=== PATIENT | female | born 1990 | race Caucasian/White ===

== ENCOUNTER 2016-12-26 07:33 | Emergency (ER) | payer SELFPAY ==
[2016-12-26 07:37] VITALS: O2SAT 99
[2016-12-26] MEDS ORDERED: HALOPERIDOL LACT 5 MG/ML INJ IVP ONE (08:08)
[2016-12-26] MEDS ORDERED: NS 1,000 ML IV ONE (08:09)
--- NOTE | 2016-12-26 08:12 | EDPHY ---
HPI/HX/ROS/PE/MDM Narrative: CHIEF COMPLAINT: Vomiting and abdominal pain HPI: The patient is a 26 y/o female complaining of lower abdominal pain and vomiting for the past 3-4 hours. She is currently begging to take a hot shower, as she believes this will help with her symptoms. The patient admits to using marijuana everyday, but denies drinking alcohol. Denies recent illness, history of surgery, urinary complaints, bowel complaints or other pertinent symptoms. REVIEW OF SYSTEMS: Aside from elements discussed in the HPI, a comprehensive 10-point review of systems was reviewed and is negative. PMH: Denies SOCIAL HISTORY: Friend at bedside, frequent marijuana user, denies alcohol PHYSICAL EXAM: General:Patient is alert, in no acute distress. ENT:Eyes are normal to inspection. ENT inspection normal. Neck: Normal inspection. Full range of motion. Respiratory:No respiratory distress. Breath sounds normal bilaterally. Cardiovascular: Regular rate and rhythm. Strong peripheral pulses. Normal cap refill. Abdomen: Diffuse abdominal tenderness to palpation. There are no peritoneal signs. There are normal bowel sounds. Back: Normal to inspection. No tenderness to palpation. Skin: Normal color. No rash. Warm and dry. Extremities: Normal appearance. Full range of motion. Neuro: Oriented x3. Normal motor function. Normal sensory function. Portions of this note were transcribed by an ED scribe. I personally performed the history, physical exam, and medical decision making; and confirm the accuracy of the information in the transcribed note. ED Course: The patient is a 26 y/o female, who is a frequent marijuana user, presenting with diffuse abdominal tenderness and emesis. She is currently begging for a hot shower, as she believes this will improve her symptoms. 0957: Spoke with Dr. Alarcon, radiologist, he reports the abdominopelvic CT is normal. 1042: The nurse reports that the patient pulled out her IV and left the emergency department. MDM: This patient presents with vomiting and abdominal pain with an essentially negative workup. Given her history of daily marijuana use and repeated requests for a hot shower, I suspect CHS. Unfortunately, the patient pulled out her own IV and walked out of the ED before visit was complete. - Data Points Imaging Results: Imaging Impressions Abdomen CT 12/26/16 09:14 Impression: 1. Probable mild wall thickening in the distal stomach, suboptimally assessed due to underdistention, which can be seen with gastritis. 2. Enlarged liver. 3. Additional findings as above.. Findings discussed with Carlos A Jacobs M.D. on December 26, 2016 at 9:56 a.m. Imaging: Discussed imaging studies w/ call center manager Radiologist, I viewed and interpreted images myself Laboratory Results: Laboratory Results 12/26/16 08:25 12/26/16 08:25 12/26/16 12/26/16 12/26/16 08:25 08:25 08:25 WBC 14.41 10^3/uL H 10^3/uL (3.80-9.50) RBC 5.03 10^6/uL 10^6/uL (4.18-5.33) Hgb 14.2 g/dL g/dL (12.6-16.3) Hct 42.3 % % (38.0-47.0) MCV 84.1 fL fL (81.5-99.8) MCH 28.2 pg pg (27.9-34.1) MCHC 33.6 g/dL g/dL (32.4-36.7) RDW 13.0 % % (11.5-15.2) Plt Count 295 10^3/uL 10^3/uL (150-400) MPV 11.9 fL H fL (8.7-11.7) Neut % (Auto) 74.7 % H % (39.3-74.2) Lymph % (Auto) 20.1 % % (15.0-45.0) [place] % (Auto) 4.0 % L % (4.5-13.0) Eos % (Auto) 0.1 % L % (0.6-7.6) Baso % (Auto) 0.3 % % (0.3-1.7) Nucleat RBC Rel Count 0.0 % % (0.0-0.2) Absolute Neuts (auto) 10.78 10^3/uL H 10^3/uL (1.70-6.50) Absolute Lymphs (auto) 2.90 10^3/uL 10^3/uL (1.00-3.00) Absolute Monos (auto) 0.57 10^3/uL 10^3/uL (0.30-0.80) Absolute Eos (auto) 0.01 10^3/uL L 10^3/uL (0.03-0.40) Absolute Basos (auto) 0.04 10^3/uL 10^3/uL (0.02-0.10) Absolute Nucleated RBC 0.00 10^3/uL 10^3/uL (0-0.01) Immature Gran % 0.8 % % (0.0-1.1) Immature Gran # 0.11 10^3/uL H 10^3/uL (0.00-0.10) Sodium 143 mEq/L mEq/L (134-144) Potassium 3.6 mEq/L mEq/L (3.5-5.2) Chloride 104 mEq/L mEq/L (97-110) Carbon Dioxide 22 mEq/l mEq/l (22-31) Anion Gap 17 mEq/L H mEq/L (8-16) BUN 9 mg/dL mg/dL (7-23) Creatinine 0.6 mg/dL mg/dL (0.6-1.0) Estimated GFR > 60 Glucose 179 mg/dL H mg/dL (70-100) Calcium 9.6 mg/dL mg/dL (8.5-10.4) Lipase 78 IU/L IU/L (23-300) Beta HCG, Qual NEGATIVE Medications Given: Discontinued Medications Haloperidol Lactate (Haldol Injection) 2.5 mg IVP EDNOW ONE Stop: 12/26/16 08:09 Last Admin: 12/26/16 08:36 Dose: 2.5 mg Sodium Chloride (Ns) 1,000 mls @ 0 mls/hr IV EDNOW ONE; Wide Open PRN Reason: Protocol Stop: 12/26/16 08:10 Last Admin: 12/26/16 08:37 Dose: 1,000 mls General Initial Vital Signs: Initial Vital Signs Temperature (C) 36.6 C 12/26/16 07:34 Heart Rate 77 12/26/16 07:34 Respiratory Rate 18 12/26/16 07:34 Blood Pressure 137/81 H 12/26/16 07:34 O2 Sat (%) 99 12/26/16 07:34 O2 Delivery Mode Room Air Allergies/Adverse Reactions: No Known Allergies Allergy (Unverified 12/26/16 07:34) Home Medications: Medication Instructions Recorded NK [No Known Home Meds] 12/26/16 Departure - Departure Disposition: Against Medical Advice Clinical Impression: Cyclical vomiting Qualifiers: Vomiting Intractability: intractable Nausea presence: unspecified Qualified Code(s): G43.A1 - Cyclical vomiting, intractable Condition: Good Instructions: Dehydration (ED), Acute Nausea and Vomiting (ED), Abdominal Pain (ED) Additional Instructions: Follow-up with your primary doctor within 72 hours. Return to the Emergency Department for fever, chest pain, shortness of breath, increasing pain or other worsening of condition. Referrals: [facility],. [Clinic] - As per Instructions Report Scribed for: Carlos A Jacobs Report Scribed by: Sofía Rollins Date of Report: 12/26/16 Time of Report: 08:14
[2016-12-26 08:37] LABS: % IMMATURE GRANULYOCYTES 0.8 % (0.0-1.1); ABSOLUTE IMMATURE GRANULOCYTES 0.11 10^3/uL (0.00-0.10); ADD DIFF? NO; ADD MORPH? NO; ADD SCAN? NO; ATYPICAL LYMPHOCYTE FLAG 60 (0-99); FRAGMENT RBC FLAG 0 (0-99); HEMATOCRIT 42.3 % (38.0-47.0); HEMOGLOBIN 14.2 g/dL (12.6-16.3); LEFT SHIFT FLG 0 (0-99); LIPEMIA HEMOLYSIS FLAG 80 (0-99); MEAN CELL HEMOGLOBIN 28.2 pg (27.9-34.1); MEAN CELL HEMOGLOBIN CONCENTR. 33.6 g/dL (32.4-36.7); MEAN CELL VOLUME 84.1 fL (81.5-99.8); MEAN PLATELET VOLUME 11.9 fL (8.7-11.7); PLATELET CLUMPS FLAG 0 (0-99); PLATELET COUNT 295 10^3/uL (150-400); RED BLOOD CELL COUNT 5.03 10^6/uL (4.18-5.33)
[2016-12-26 08:51] LABS: ANION GAP 17 mEq/L (8-16); CALCIUM 9.6 mg/dL (8.5-10.4); CARBON DIOXIDE 22 mEq/l (22-31); CHLORIDE 104 mEq/L (97-110); CREATININE 0.6 mg/dL (0.6-1.0); GLOMERULAR FILTRATION RATE > 60; GLUCOSE 179 mg/dL (70-100); POTASSIUM 3.6 mEq/L (3.5-5.2); SODIUM 143 mEq/L (134-144)
[2016-12-26] MEDS ORDERED: IOPAMIDOL (ISOVUE-300) 100 ML BTL ONE (09:22)
[2016-12-26 10:11] VITALS: BP 112/77; PULSE 74; RESP 16; TEMP 97.7
== END 2016-12-26 10:38 | disposition left against medical advice (07) ==
DX: G43.A1 Cyclical vomiting, in migraine, intractable (principal); E86.9 Volume depletion, unspecified
CPT/HCPCS: 96374; Q9967